=== PATIENT | male | born 1965 | race Caucasian/White ===

== ENCOUNTER 2016-09-27 04:05 | Emergency (ER) | payer SELFPAY ==
--- NOTE | 2016-09-27 06:12 | ED CLINICAL REPORT ---
Clinical Report - Physicians/Mid Levels [facility] [address] [place] [address] 09/27/2016 4:05 Patient: HOLLI DEJESUS Time Seen: 0405. Arrived- By ambulance. Historian- patient and EMS personnel. HISTORY OF PRESENT ILLNESS Chief Complaint: WEAKNESS and IMPAIRED SPEECH. The patient has had new onset of weakness of the right arm (severe), right hand (severe), right leg (severe), right foot (severe) and left face (mild). He has had numbness of the right arm (severe), right hand (severe), right leg (severe), right foot (severe) and left face (moderate). He has had severe difficulty with speech. No visual disturbance or impaired swallowing. This started today 1 hour STEEL ESTIMATOR (0300), patient was last known well (258) and is still present but is improving. It was abrupt in onset and has been constant but is not gone now. At its maximum deficit described as severe. When seen in the E.D.,deficit described as moderate. No dizziness, altered mental status, seizure or blackouts. Usually is alert and oriented X3 and has normal mobility. (Patient without head trauma or prior stroke and the previous 3 months. Patient without history of known intracranial hemorrhage. Patient has no symptoms suggestive of a subarachnoid hemorrhage. No seizure, stroke. No arterial puncture and a noncompressible site in the previous 7 days. No history of bleeding problems. Patient is not on any anticoagulation. Patient without recent surgery. No history of GI bleed.). Similar symptoms previously: None. Recent medical care: Not recently seen/assessed. REVIEW OF SYSTEMS No fever or skin rash. All systems otherwise negative, except as recorded above. PAST HISTORY See nurses notes. SOCIAL HISTORY Smoker- current status unknown. Alcohol use. No drug use. No recent travel. Is a local resident. ADDITIONAL NOTES The nursing notes have been reviewed. PHYSICAL EXAM Vital Signs: 09/27/2016 04:00 BP: 154/104. HR: 111. RR: 22. O2 saturation: 98%. Temp: 98.2 F. Pain level now: 1/10. Blood pressure normal. Oxygen saturation normal. Appearance: Alert. No acute distress. Head: Head atraumatic. Eyes: Pupils equal, round and reactive to light. Pupillary exam: Right pupil 3mm, round and reactive to light directly and consensually and with accommodation. Left pupil: 3mm, round and reactive to light directly and consensually and with accommodation. No nystagmus. ENT: Normal ENT inspection. Airway intact. Pharynx normal. Neck: Normal inspection. Neck supple. No meningeal signs. CVS: Normal heart rate and rhythm. Heart sounds normal. Pulses normal. Respiratory: No respiratory distress. Breath sounds normal. Abdomen: Soft and nontender. No organomegaly. Skin: Skin warm and dry. Normal skin color. No rash. Normal skin turgor. Extremities: Extremities exhibit normal ROM. No lower extremity edema. Neuro: Alert. Oriented X 3. Severe dysphasia. No facial weakness. No cerebellar findings. No motor deficit. No sensory deficit. Reflexes normal. (left sided facial numbness. drift. right sided weakness 4+. slight drift of right.). LABS, X-RAYS, AND EKG EKG: No acute process. No acute ischemia. Normal EKG. Normal sinus rhythm. Rate: 99. Normal P waves. Normal ELEANOR. Normal QRS complex. Normal axis. Normal ST and T waves, QT and QTc. The study has been interpreted contemporaneously. The study has been independently viewed by me. The EKG appears to be a good tracing. Chest X-ray: No acute disease. Normal lung markings present. Normal heart size. No infiltrate. Views: AP (portable). The X-rays were independently viewed by me and interpreted contemporaneously by me. CTA Head: Normal study. No acute changes. No significant lesions. No infarction, hemorrhage, intracranial mass or midline shift. head and neck CTA. The study was independently viewed by me and interpreted by the radiologist. The study was discussed with the radiologist (via phone and fax). CT Head: Normal study. No acute changes. No bony abnormalities. Head CT performed without contrast. The study was independently viewed by me and interpreted by the radiologist. The study was discussed with the radiologist (via phone and fax). Laboratory Tests: CBC w Diff: (JO: 09/27/2016 04:00) ( MsgRcvd 09/27/2016 04:20) Final results Test Result Flag Units (Reference) WHITE BLOOD COUNT 13.4 H K/uL (4.5-11.5) RED BLOOD COUNT 5.82 M/uL (4.50-5.90) HEMOGLOBIN 14.9 gm/dL (13.5-17.5) HEMATOCRIT 46.2 % (41.0-53.0) MEAN CELL VOLUME 79 L fL (80-100) MEAN CORPUSCULAR HGB 26 pg (26-34) MEAN CORPUSCULAR HGB CONC 32 g/dL (31-37) RED CELL DISTRIBUTION WIDTH 15.1 H % (11.6-14.8) PLATELET COUNT 411 H K/uL (150-400) NEUTROPHIL % 72.7 % (50-75) LYMPH % 19.4 L % (25-40) MONO % 5.8 % (3-14) EOSINOPHIL % 1.7 % (0-4) BASOPHIL % 0.4 % (0-2) PT with INR: (JO: 09/27/2016 04:00) ( MsgRcvd 09/27/2016 04:29) Final results Test Result Flag Units (Reference) INR 0.9 (0.8-1.2) Low Intensity Therapy: INR 1.5-2.0 PT range 18.5-23.1Mod.Intensity Therapy: INR 2.0-3.0 PT range 23.1-31.5High Intensity Therapy: INR 2.5-3.5 PT range 27.4-35.5High Intensity Therapy 2: INR 3.0-4.0 PT range 31.5-39.3 APTT 34 SECONDS (24-34) FIBRINOGEN 566 H mg/dL (193-455) D-DIMER QUANTITATIVE 1.54 H ug/mLFEU (0.27-0.52) The primary value of this quantitative assay relates toits negative predictive value (i.e. exclusion) of pulmonaryembolism/deep vein thrombosis/DIC.Elevated levels of d-dimer may also occur with:, age, cancer, inflammation, liver disease,post-op, infection, hematoma, coronary disease, peripheralarteriopathy, bleeding disorders and thrombolytic treatment.Results should be correlated with other clinical andradiological data.Testing Methodology: Latex Immunoassay CMP: (JO: 09/27/2016 04:00) ( MsgRcvd 09/27/2016 04:36) Final results Test Result Flag Units (Reference) GLUCOSE 135 H mg/dL (70-110) BUN 11 mg/dL (7-18) CREATININE 0.7 mg/dL (0.6-1.3) Estimated GFR >60 mL/min Estimated GFR- >60 mL/min Note: Persistent reduction over 3 months in eGFR<60 mL/min/1.73 m2 defines CKD. Patients with eGFR values>=60 mL/min/1.73 m2 may also have CKD if evidence ofpersistent proteinuria. Additional information may be foundat www.kidney.org. SODIUM 142 mmol/L (136-145) POTASSIUM 3.8 mmol/L (3.5-5.1) CHLORIDE 105 mmol/L (98-107) CARBON DIOXIDE 25 mmol/L (21-32) CALCIUM 8.6 mg/dL (8.5-10.1) TOTAL PROTEIN 8.0 g/dL (6.4-8.2) ALBUMIN 3.3 g/dL (3.3-5.0) BILIRUBIN, TOTAL 0.3 mg/dL (0.0-1.0) ALKALINE PHOSPHATASE 127 H U/L (46-116) AST (SGOT) 15 U/L (15-37) ALT (SGPT) 25 U/L (12-78) . PROGRESS AND PROCEDURES Course of Care: the patient is a 51 yo smoker presenting for evaluation of stroke symptoms. NIH stroke scale of 5. Patient taking to CT scanner per protocol. Seems to be much better from the initial EMS report. Stroke protocol in place. Work up pending. CT without signs of bleed. Patient candidate for TPA. Informed consent obtained. Discussed case with Stroke neuro. Spoke with stroke fellow and consult with Dr. Gunn's team. Because of the language problem, patient can be offered TPA. Discussed with patient again. Patient agreeable to TPA. Patient with improved sensation and strength but with persistent difficulty with word finding. NIH stroke scale of 2. TPA given. Patient with SBP 185. Labetalol given IV. Transport here. Informed written consent obtained for transfer. Patient's speech improved significantly. At the time of transfer. Patient resting in bed no acute distress. Patient with "Duck Borrero" video game notification sound on phone. Able to talk about it regularly. Critical care performed (65 minutes). Time is exclusive of separately billable procedures. Time includes: direct patient care, patient reassessment, coordination of patient care, interpretation of data (laboratory data), review of patient's medical records, medical consultation and documentation of patient care. Consult obtained. stroke neuro. Disposition: Transferred to [facility]. CLINICAL IMPRESSION acute ischemic stroke with impaired speech and right sided deficits acute hypertension. (Electronically signed by Clive Chance Dr. 09/28/2016 17:40) Addenda for ANJELICA HOLLI Cantu VisitID: [id number] Date: 09/27/2016 09/27/2016 6:17 tPA IV pump taken with [facility] transport team (Electronically signed by Lorraine Patricia R.N. - 09/27/2016 6:17)
--- NOTE | 2016-09-27 06:12 | ED ORDER SUMMARY ---
..... Patient: HOLLI DEJESUS OrderSheet [facility] VisitID: [id number] [place] [address] 51y, M Registration Date/Time: 09/27/2016 ORDER SHEET Weight: 127.0 kg (stated) Allergies: None GENERAL ORDERS: CT Head wo Cont Urgent (04:09/27/2016 CHagerty ER Traffic Sign Supervisor per protocol) (Ack 4:07 CHagerty ER Traffic Sign Supervisor) (4:36 CHagerty ER Traffic Sign Supervisor) CTA Head w Cont (No) (N/A) Urgent (04:08 09/27/2016 Larissa Millan) (Cancelled: Duplicate Order4:25 Larissa Millan) Stroke Panel Stat (04:09/27/2016 Larissa Millan) (Ack 4:36 Haul Zing. ER Traffic Sign Supervisor) (4:41 JQuivey R.N.) Vp Medical (Continuous) (stroke symptoms) (04:18 09/27/2016 Larissa Millan) (Ack 4:36 Astereserty ER Traffic Sign Supervisor) (4:41 JQuivey R.N.) Chest 1V Urgent (04:18 09/27/2016 Larissa Millan) (Ack 4:36 Astereserty ER Traffic Sign Supervisor) (4:52 RFay) EKG - ER Stat (04:09/27/2016 Larissa Millan) (Ack 4:36 Haul Zing. ER Traffic Sign Supervisor) (5:22 RMarsden R.N.) Pulse oximeter (04:09/27/2016 Larissa Millan) (Ack 4:36 Haul Zing. ER Traffic Sign Supervisor) (4:41 JQuivey R.N.) CTA Head and Neck (No) (N/A) Urgent (04:09/27/2016 Larissa Millan) (Ack 4:36 Haul Zing. ER Traffic Sign Supervisor) (4:52 RFay) MEDICATION ORDERS: IV FLUIDS: TPA Protocol (Stroke) 0.9 mg/kg (Stroke 0.9 mg/kg, Max Dose is 90mg, Bolus-10% of total dose given over 1min, Infusion-remaining 90% of total dose given over 59) (05:10 09/27/2016 Larissa Millan) (5:20 Giles Saba) Labetalol IV 20 mg (HIGH ALERT MEDICATION, NOW) (05:41 09/27/2016 Larissa Millan) (6:01 Giles Saba) ORDER SHEET NOTES: [Electronically signed by Lorraine Patricia R.N. (06:28 09/27/2016)] [Electronically signed by Clive Chance Dr. (17:40 09/28/2016)] [Electronically locked/signed by Lorraine Patricia R.N. (06:28 09/27/2016)]
--- NOTE | 2016-09-27 06:12 | ED ORDER SUMMARY ---
..... Patient: HOLLI DEJESUS OrderSheet [facility] VisitID: [id number] [place] [address] 51y, M Registration Date/Time: 09/27/2016 ORDER SHEET Weight: 127.0 kg (stated) Allergies: None GENERAL ORDERS: CT Head wo Cont Urgent (04:09/27/2016 CHagerty ER Machine Trimmer per protocol) (Ack 4:07 CHagerty ER Machine Trimmer) (4:36 CHagerty ER Machine Trimmer) CTA Head w Cont (No) (N/A) Urgent (04:08 09/27/2016 Larissa Millan) (Cancelled: Duplicate Order4:25 Larissa Millan) Stroke Panel Stat (04:09/27/2016 Larissa Millan) (Ack 4:36 [facility] ER Machine Trimmer) (4:41 JQuivey R.N.) Medical Scribe (Continuous) (stroke symptoms) (04:18 09/27/2016 Larissa Millan) (Ack 4:36 [facility]ala[facility]al[facility] ER Machine Trimmer) (4:41 JQuivey R.N.) Chest 1V Urgent (04:18 09/27/2016 Larissa Millan) (Ack 4:36 KoalaDealerty ER Machine Trimmer) (4:52 RFay) EKG - ER Stat (04:09/27/2016 Larissa Millan) (Ack 4:36 [facility] ER Machine Trimmer) (5:22 RMarsden R.N.) Pulse oximeter (04:09/27/2016 Larissa Millan) (Ack 4:36 [facility] ER Machine Trimmer) (4:41 JQuivey R.N.) CTA Head and Neck (No) (N/A) Urgent (04:09/27/2016 Larissa Millan) (Ack 4:36 [facility] ER Machine Trimmer) (4:52 RFay) MEDICATION ORDERS: IV FLUIDS: TPA Protocol (Stroke) 0.9 mg/kg (Stroke 0.9 mg/kg, Max Dose is 90mg, Bolus-10% of total dose given over 1min, Infusion-remaining 90% of total dose given over 59) (05:10 09/27/2016 Larissa Millan) (5:20 Giles Saba) Labetalol IV 20 mg (HIGH ALERT MEDICATION, NOW) (05:41 09/27/2016 Larissa Millan) (6:01 Giles Saba) ORDER SHEET NOTES: [Electronically signed by Lorraine Patricia R.N. (06:28 09/27/2016)] [Electronically signed by Clive Chance Dr. (17:40 09/28/2016)] [Electronically locked/signed by Lorraine Patricia R.N. (06:28 09/27/2016)]
--- NOTE | 2016-09-27 06:12 | ED NURSING NOTES ---
Clinical Report - Nurses [facility] [address] [address] 09/27/2016 4:05 [id number] Triage time 04:02. Acuity: LEVEL 2. Chief Complaint: WEAKNESS, NUMBNESS and IMPAIRED SPEECH. 04:20 09/27/16. Alert. SEPSIS SCREEN: Sepsis Screen. Negative (no infection suspected/documented). KALEIGH COMA SCORE: Kaleigh Coma Scale: 15- eyes open spontaneously (4); best verbal response- oriented x 4 (5); best motor response- obeys commands (6). --04:21 Lorraine Patricia R.N. 04:00 09/27/16. BP: 154/104 taken on the left arm, while sitting. HR: 111. RR: 22. O2 saturation: 98% on room air. Temp: 98.2 F. Pain level now: 04/27. --04:21 Lorraine Patricia R.N. <<STRICKEN ENTRY-- 04:10 09/27/16. BP: 154/104 taken on the left arm, while sitting. HR: 111. RR: 22. O2 saturation: 98% on room air. Temp: 98.2 F. Pain level now: 04/27. --04:21 Lorraine Patricia R.N. --END STRIKE>> Correction. --05:05 Lorraine Patricia R.N. Weight: 127 kg stated. Height/Length: 72 inches Estimated. BMI: 38. --04:16 Lorraine Patricia R.N. Medications Sudafed Oral. --04:19 Lorraine Patricia R.N. Allergies None. --04:20 Lorraine Patricia R.N. History Arrived by EMS. Historian: patient. This started about 1 hours ago. Patient was last known well (2:30 AM). Onset was abrupt. Symptoms are still present. This is a new problem. (while watching tv). He has had a headache and difficulty with speech. Treatment BUFFING TURNER AND COUNTER: None. PAST MEDICAL HX: Immunizations: up-to-date. SOCIAL HX: Heavy tobacco smoker- less than 1 pack per day. Regular alcohol use. No drug use. NUTRITIONAL RISK ASSESSMENT: The nutritional risk assessment revealed no deficiencies. LEARNING NEEDS ASSESSMENT: The learning needs assessment revealed no barriers. FALL RISK ASSESSMENT: Fall risk assessment completed. Risk factors identified include patient impairment of mobility and sensation. Fall interventions initiated. Patient placed on stretcher. Side rails up x2. Brakes on Bed in low position. Patient visible from nurses' station. Call light in reach of patient. Instructed not to get up without assistance. FUNCTIONAL ASSESSMENT: Functional assessment performed: communication barrier present- this communication barrier is a new problem; mobility impairment present- this mobility impairment is a new problem. SKIN INTEGRITY ASSESSMENT: Skin integrity risk assessment completed. No skin integrity risk identified. --04:21 Lorraine Patricia R.N. PROBLEMS: Diverticulitis. Alcohol Intoxication. --04:20 Lorraine Patricia R.N. ADDITIONAL SURGERIES: no known surgeries. Interventions ID band on patient. To treatment room. --04:21 Lorraine Patricia R.N. PHYSICAL ASSESSMENT 04:06. To room via stretcher. Baseline functional status: usually alert and oriented x4. Verbal response: usually clear. Motor response: usually steady gait GENERAL / NEURO / PSYCH: Awake. Oriented X 4. Appears in no acute distress. Kaleigh Coma Scale: 15- eyes open spontaneously (4); best verbal response- oriented x 4 (5); best motor response- obeys commands (6). Severe slurred speech. The patient has had weakness of the right leg. He has had numbness of the left face. HEENT: No facial asymmetry noted. Pupils equal, round and reactive to light. RESPIRATORY: Mild respiratory distress (tachypnea). Breath sounds within normal limits. CVS: Normal sinus rhythm noted. Capillary refill less than 2 seconds. SKIN: Skin is intact, warm and dry. --04:55 Lorraine Patricia R.N. NURSING PROGRESS NOTES 04:09 09/27/2016 Site #1 started via IV in the right antecubital space with an 18g angiocath. Blood drawn: rainbow set. Labeled in the presence of the patient and sent to the lab. Saline lock flushed with 5 mL saline. --04:59 Lorraine Patricia R.N. 04:10. Patient transported to CT by stretcher with nurse and tech. --05:00 Lorraine Patricia R.N. 04:17. Patient returned from CT by stretcher with nurse and tech. --05:01 Lorraine Patricia R.N. 04:28. Patient transported to CT by stretcher with tech. --05:02 Lorraine Patricia R.N. 04:37. Patient returned from CT with tech. --05:02 Lorraine Patricia R.N. 04:48. ( x ray in room). --05:03 Lorraine Patricia R.N. 14:05. content developer, pulse oximeter and NIBP monitor placed on patient; (q 10 minute BP). Patient gowned. Two patient identifiers checked. Call light placed in reach. Side rails up x 2. Bed placed in lowest position. Brakes of bed on. --04:57 Lorraine Patricia R.N. 05:18 09/27/2016 Started 90 mg of TPA Protocol (Stroke) IVPB in bag #1 100 mL; bolus of 9 mg over 1 minute(s) then at 81 mL/hr over 1 hour(s) via site #1 via IV pump. Allergies verified and confirmed 5 rights. IV patency established. IV site checked: no pain, redness, or swelling. IV flushed thoroughly pre- and post-medication administration. Completed per protocol. --05:20 Lorraine Patricia R.N. ( EKG performed at 04:27). --05:24 Lorraine Patricia R.N. 05:52 09/27/2016 Labetalol IVP 20 mg given over 5 minute(s) via site #1. Allergies verified and confirmed 5 rights. IV patency established. IV site checked: no pain, redness, or swelling. IV flushed thoroughly pre- and post-medication administration. IVP given by RN. --06:01 Lorraine Patricia R.N. 05:58 09/27/2016 Labetalol IVP Response: no adverse reaction. 09/27/2016 06:01 BP: 149/91. HR: 99. RR: 14. O2 saturation: 93%. --06:10 Lorraine Patricia R.N. ( Patient had slurred speech, R sided motor deficit and L sided facial numbness upon arrival. He reported dull headache in the back of his head. After returning from his first CT scan, patient's speech and motor deficits began improving. By 05:18, patient's speech deficits appeared to have resolved. Patient still reported a subjective tingling on the L side of his face and tongue at that point. Patient continued to improve during to t-PA administration. He remained on q 10 minute vitals and was a 1:1 patient for the duration of his stay in this ED.). --06:25 Lorraine Patricia R.N. NIH STROKE SCALE: 04:38. Score 1. Level of Consciousness: alert (0). LOC Questions: both (0). LOC Commands: both (0). Best gaze: normal (0). Visual field loss: none (0). Facial palsy: normal (0). Motor arm: no drift right arm (0) and no drift left arm (0). Motor leg: no drift left leg (0) and drift right leg (1). Limb ataxia: none (0). Sensory loss: none (0). Aphasia: none (0). Dysarthria: normal (0). Extinction and inattention: none (0). --04:46 Lorraine Patricia R.N. Score 0. Level of Consciousness: alert (0). LOC Questions: both (0). LOC Commands: both (0). Best gaze: normal (0). Visual field loss: none (0). Facial palsy: normal (0). Motor arm: no drift right arm (0) and no drift left arm (0). Motor leg: no drift right leg (0) and no drift left leg (0). Limb ataxia: none (0). Sensory loss: none (0). Aphasia: none (0). Dysarthria: normal (0). Extinction and inattention: none (0). --05:18 Lorraine Patricia R.N. Score 1. Level of Consciousness: alert (0). LOC Questions: both (0). LOC Commands: both (0). Best gaze: normal (0). Visual field loss: none (0). Facial palsy: normal (0). Motor arm: no drift right arm (0) and no drift left arm (0). Motor leg: no drift right leg (0) and no drift left leg (0). Limb ataxia: none (0). Sensory loss: mild to moderate (1). Aphasia: none (0). Dysarthria: normal (0). --05:40 Lorraine Patricia R.N. DISPOSITION / DISCHARGE 05:35 09/27/2016 TPA Protocol (Stroke) IVPB Response: no adverse reaction. 09/27/2016 05:35 BP: 185/98. HR: 102. RR: 19. O2 saturation: 93%. --06:14 Lorraine Patricia R.N. 06:02 09/27/2016 Site #[address] upon discharge; patent, no pain and no signs of infection or infiltration. Converted to saline lock and flushed with 5 mL saline; flushes easily. --06:13 Lorraine Patricia R.N. 06:02. Departure time: 06:04. Transferred to [facility]. Summary of care provided to transport team and transfer facility via paper and fax. Transported via ambulance by transport team with monitor and IV. Report was given to a nurse at the bedside. Report included patient's care, treatment, medications, reviewed medication reconcilliation, and condition (including any recent changes or anticipated changes). All questions were answered. Report was acknowledged and care was transferred. Patient's personal items include: shirt, wallet and cell phone; items were given to the patient and transported with the patient. Collection of belongings was witnessed by 1 nurse. --06:16 Lorraine Patricia R.N. 06:01 09/27/16. BP: 149/91. HR: 99. RR: 14. O2 saturation: 93%. Temp: deferred. Pain level now: 0/10. --06:16 Lorraine Patricia R.N. <<STRICKEN ENTRY-- 06:01 09/27/16. BP: 149/91. HR: 99. RR: 14. O2 saturation: 93%. --06:16 Lorraine Patricia R.N. --END STRIKE>> Correction. --06:27 Lorraine Patricia R.N. Locked/Released at 09/27/2016 6:28 by Lorraine Patricia R.N.
--- NOTE | 2016-09-27 07:40 | DIAGNOSTIC IMAGING REPORT ---
PROCEDURE: CT HEAD WITHOUT CONTRAST INDICATION: STROKE left-sided neurologic deficits. TECHNIQUE: Axial CT images were acquired through the head. Coronal and sagittal reformations were created. COMPARISON: None. FINDINGS: No intracranial hemorrhage or extraaxial fluid collections. Ventricles are normal in size, shape and position. There is no mass, mass effect or midline shift. The plascencia-white matter differentiation is normal. There is no edema. The calvarium is intact. The paranasal sinuses and mastoid air cells are normally aerated. The extracranial soft tissues and orbits are normal. IMPRESSION: 1. No CT evidence of acute intracranial process. 2. Preliminary report by Dr. Marquita Fisher of [facility] radiology All CT scans at this facility use dose modulation, iterative reconstruction, and/or weight-based dosing when appropriate to reduce radiation dose to as low as reasonably achievable.
--- NOTE | 2016-09-27 08:11 | DIAGNOSTIC IMAGING REPORT ---
PROCEDURE: CTA HEAD AND NECK INDICATION: STROKE SYMPTOMS TECHNIQUE: Axial thin-slice CTA images through the neck and head were acquired following uncomplicated administration of 65 ml Isovue 370 IV contrast. Coronal and sagittal MIP reformations were created. COMPARISON: Head CT performed the same day FINDINGS: Exam slightly limited secondary to early arterial phase imaging and decreased quantity of contrast. Head: Anterior circulation: Given limitations of early phase arterial imaging was suboptimal opacification of the vessels, the intracranial internal carotid arteries are patent and symmetric to the carotid termini. A1 segments are patent and symmetric bilaterally. No definite anterior communicating artery aneurysm. There is opacification of the distal anterior cerebral arteries. Middle cerebral arteries are patent and symmetric through the M2 segments, after which the rest of the vessels are suboptimally opacified which may be a function of early arterial phase imaging. Distal branch occlusion cannot be excluded. Posterior circulation: Dominant distal left intracranial vertebral artery and patent, small right vertebral artery into the basilar artery. Posterior cerebral arteries are patent and symmetric through the P1 segments but not well seen distally. Neck: Carotid system: Tortuous right internal carotid artery. No stenosis in either carotid artery. Vertebral system: Patent bilaterally, left demonstrates a slightly larger caliber than the right. No evidence of dissection or stenosis. Other findings: There is an aberrant right subclavian artery coursing posterior to the esophagus and trachea. Few blebs at the lung apices. Mild degenerative disc endplate changes in the mid cervical spine. IMPRESSION: 1. Mildly limited study secondary to early phase arterial imaging and decreased quantity of contrast administered. 2. Arteries distal to the M2 segments bilaterally and P1 segments bilaterally are not well seen. The distal branch artery occlusions cannot be excluded. Proximally, they appear patent. Recommend MRI for further evaluation. 3. Normal CT of the neck. 4. Normal variant aberrant right subclavian artery. 5. Preliminary report by Dr. Marquita Gates of [facility].
--- NOTE | 2016-09-27 08:13 | DIAGNOSTIC IMAGING REPORT ---
PROCEDURE: XR CHEST 1 VIEW INDICATION: Code stroke, left-sided deficit TECHNIQUE: Single view chest. 04:51 hours COMPARISON: None FINDINGS: Heart size at the upper limits of normal. Normal aortic contour. No central venous congestion. Clear lungs. Normal pleural spaces. Intact osseous structures IMPRESSION: 1. No evidence of acute cardiopulmonary disease.
--- NOTE | 2016-09-28 17:41 | ED DISCHARGE INSTRUCTIONS ---
Patient: HOLLI DEJESUS General Instructions [facility] VisitID: [id number] [address] [place] [place] [address] 51y, M Registration Date/Time: 09/27/2016 acute ischemic stroke with impaired speech and right sided deficits acute hypertension. (Electronically signed by Clive Chance Dr. 09/28/2016 17:40)
--- NOTE | 2016-09-28 17:41 | ED MAR SUMMARY ---
..... Medication Administration Record [facility] [address] [place] [address] Patient: HOLLI DEJESUS Visit ID: [id number] 51y, M Weight: 127.0 kg Height/Length: 72 in BMI: 38 ALLERGIES: None Start 05:18 09/27/2016 Lorraine Patricia, RBurtN. Medication Administered: TPA PROTOCOL (STROKE), Dose: 90 mg IVPB over 1 hour(s), Rate: 81 mL/hr, Bolus: 9 mg over 1 minute(s), Dispensed: 100 mL bag, Site: #1 right AC. Medication Ordered: TPA Protocol (Stroke) 0.9 mg/kg (Stroke 0.9 mg/kg, Max Dose is 90mg, Bolus-10% of total dose given over 1min, Infusion-remaining 90% of total dose given over 59). Given 05:52 09/27/2016 Lorraine Patricia, R.N. Medication Administered: LABETALOL [IVP], Dose: 20 mg IVP over 5 minute(s), Site: #1 right AC. Medication Ordered: Labetalol IV 20 mg (HIGH ALERT MEDICATION, NOW).
--- NOTE | 2016-09-28 17:41 | ED MED RECONCILIATION SUMMARY ---
Patient: HOLLI DEJESUS Medication Reconciliation Report [facility] VisitID: [id number] [address] [place] [address] 51y, M Registration Date/Time: 09/27/2016 Weight: 127.0 kg Height/Length: 72 in. BMI: 38.0 ALLERGIES: None The patient's Home Medications are listed below: THE FOLLOWING MEDICATIONS NEED TO BE RECONCILED: Sudafed Oral The source(s) of the original Home Medication information: Not obtained. The following Medications were given to the patient in the Emergency Department: TPA Protocol (Stroke) IVPB bolus 9 mg over 1 minute(s), then 90 mg 81 mL/hr, administered: 09/27/2016 5:18:00 AM Labetalol [IVP] IVP 20 mg, administered: 09/27/2016 5:52:00 AM The following Medications were prescribed to the patient: None.
--- NOTE | 2016-09-28 17:41 | ED DISCHARGE INSTRUCTIONS ---
Patient: HOLLI DEJESUS General Instructions [facility] VisitID: [id number] [address] [place] [address] 51y, M Registration Date/Time: 09/27/2016 acute ischemic stroke with impaired speech and right sided deficits acute hypertension. (Electronically signed by Clive Chance Dr. 09/28/2016 17:40)
--- NOTE | 2016-09-28 17:41 | ED MAR SUMMARY ---
..... Medication Administration Record [facility] [address] [place] [address] Patient: HOLLI DEJESUS Visit ID: [id number] 51y, M Weight: 127.0 kg Height/Length: 72 in BMI: 38 ALLERGIES: None Start 05:18 09/27/2016 Lorraine Patricia, RBurtN. Medication Administered: TPA PROTOCOL (STROKE), Dose: 90 mg IVPB over 1 hour(s), Rate: 81 mL/hr, Bolus: 9 mg over 1 minute(s), Dispensed: 100 mL bag, Site: #1 right AC. Medication Ordered: TPA Protocol (Stroke) 0.9 mg/kg (Stroke 0.9 mg/kg, Max Dose is 90mg, Bolus-10% of total dose given over 1min, Infusion-remaining 90% of total dose given over 59). Given 05:52 09/27/2016 Lorraine Patricia, R.N. Medication Administered: LABETALOL [IVP], Dose: 20 mg IVP over 5 minute(s), Site: #1 right AC. Medication Ordered: Labetalol IV 20 mg (HIGH ALERT MEDICATION, NOW).
--- NOTE | 2016-09-28 17:41 | ED MED RECONCILIATION SUMMARY ---
Patient: HOLLI DEJESUS Medication Reconciliation Report [facility] VisitID: [id number] [address] [place] [address] 51y, M Registration Date/Time: 09/27/2016 Weight: 127.0 kg Height/Length: 72 in. BMI: 38.0 ALLERGIES: None The patient's Home Medications are listed below: THE FOLLOWING MEDICATIONS NEED TO BE RECONCILED: Sudafed Oral The source(s) of the original Home Medication information: Not obtained. The following Medications were given to the patient in the Emergency Department: TPA Protocol (Stroke) IVPB bolus 9 mg over 1 minute(s), then 90 mg 81 mL/hr, administered: 09/27/2016 5:18:00 AM Labetalol [IVP] IVP 20 mg, administered: 09/27/2016 5:52:00 AM The following Medications were prescribed to the patient: None.
== END 2016-09-27 06:02 | disposition short-term general hospital (02) ==
LOC: ED SRH 04:05
DX: I63.9 Cerebral infarction, unspecified (principal); I10 Essential (primary) hypertension; Z72.0 Tobacco use
CPT/HCPCS: 90100; 91556; 94001; 94050; 94060; 95059